=== PATIENT | male | born 1960 | race Caucasian/White ===

== ENCOUNTER 2016-04-16 07:48 | Day surgery (SDC) | payer OTHER ==
[2016-04-14 14:36] VITALS: BMI 49.2
[2016-04-16] MEDS ORDERED: PROPOFOL 20 ML ONE ×2 (08:47)
[2016-04-16 10:09] VITALS: TEMP 97.8
[2016-04-16 10:37] VITALS: BP 177/68; PULSE 94
--- NOTE | 2016-04-17 13:47 | PATH ---
Surgical Pathology Report Patient Name: YULIA DIETZ [facility]. Rec. #: [id number] /Age/Gender: 1960 (Age: 55) / M Account: [id number] Location: [facility]-ENDOSCOPY Taken: 04/16/2016 Received: 04/16/2016 Reported: 04/17/2016 Physicians: Jerry Caro M.D. Specimen(s) Received A: SPLENIC FLEXURE POLYP B: RECTOSIGMOID POLYP Clinical History Screening, routine Colon polyps Final Diagnosis A. SPLENIC FLEXURE, POLYP, BIOPSY: TUBULAR ADENOMA. B. RECTOSIGMOID, POLYP, BIOPSY: TUBULAR ADENOMA. Electronically Signed Giovana Neal M.D. Gross Description A. Received in formalin, labeled "splenic flexure polyp" is a cardenas, polypoid portion of soft tissue measuring 0.7 cm. in greatest dimension. The specimen is submitted in toto in one cassette. B. Received in formalin, labeled "rectosigmoid polyp," is a 0.6 x 0.6 x 0.4 cm cardenas, polypoid portion of soft tissue. The specimen is bisected and entirely submitted in one cassette. /04/16/2016 saudi04/16/2016
== END 2016-04-16 10:35 | disposition home or self-care (01) ==
LOC: FASU-ENDO 07:48
PROVIDERS: ATTEND Internal Medicine Gastroenterology
PROC: 0DBP8ZX Excision of Rectum, Via Natural or Artificial Opening Endoscopic, Diagnostic (ICD-10-PCS; 2016-04-16)
PROC: 0DBL8ZX Excision of Transverse Colon, Via Natural or Artificial Opening Endoscopic, Diagnostic (ICD-10-PCS; principal; 2016-04-16 09:30)
DX: Z12.11 Encounter for screening for malignant neoplasm of colon (principal); D12.3 Benign neoplasm of transverse colon; D12.7 Benign neoplasm of rectosigmoid junction
CPT/HCPCS: 88305-TC